=== PATIENT | female | born 1960 | race Two or more races ===

== ENCOUNTER 2024-10-03 15:43 | Outpatient (CLI) | payer OTHER | END 2024-10-03 15:48 | disposition home or self-care (01) | LOC: RAD 15:43 | DX: M25.561 Pain in right knee (principal) ==

== ENCOUNTER 2024-10-28 17:26 | Outpatient (CLI) | payer OTHER ==
[2024-10-28 17:54] LABS: BASO % 0.9 % (0.1-1.2); EOS # 0.16 (0.04-0.54); HEMATOCRIT 37.1 % (34.1-44.9); HEMOGLOBIN 11.9 g/dL (11.2-15.7); LYMPH # 2.92 (1.18-3.74); LYMPH % 35.6 % (19.3-53.1); MEAN CORPUSCULAR HEMOGLOBIN 22.3 pg (25.6-32.2); MONO # 0.53 (0.24-0.82); MONO % 6.5 % (4.7-12.5); NEUT # 4.51 (1.56-6.13); NEUT % 54.9 % (34.0-71.1); PLATELET COUNT 311 K/uL (163-369); RED BLOOD COUNT 5.34 M/uL (3.93-5.22); RED CELL DISTRIBUTION WIDTH 15.6 % (11.6-14.4)
[2024-10-28 18:04] LABS: ob NEGATIVE (NEGATIVE)
[2024-10-28 18:04] LABS: URINE BILIRRUBIN NEGATIVE (NEGATIVE); URINE BLOOD SMALL; URINE GLUCOSE NEGATIVE (NEGATIVE); URINE KETONE NEGATIVE (NEGATIVE); URINE LEUKOCYTE NEGATIVE; URINE NITRATE NEGATIVE; URINE PROTEIN NEGATIVE (NEGATIVE); URINE UROBILINOGEN 0.2 E.U./dl
[2024-10-28 18:07] LABS: URINE BACTERIA 59.9 uL (0.0-1933); URINE EPITHELIAL CELLS 7.7 uL (0.0-38.8); URINE RBC 28.2 uL (0.0-20.8); URINE WBC 5.6 uL (0.0-23.2)
[2024-10-28 18:17] LABS: URINE APPEARANCE CLEAR; URINE COLOR YELLOW
[2024-10-28 18:26] LABS: ALBUMIN 4.2 gm/dL (3.4-5.0); BILIRUBIN TOTAL 0.57 mg/dL (0.3-1.2); CALCIUM 9.8 mg/dL (8.5-10.1); CREATININE SERUM 0.76 mg/dL (0.55-1.02); FREE TRIODOTIRONINE 2.37 pg/ml (2.18-3.98); GFR 76.14; GLOBULINA 3.5 G/DL (2.4-3.5); POTASSIUM 4.67 mEq/L (3.5-5.1); T4 TOTAL 9.09 UG/DL (4.8-13.9); TOTAL PROTEIN 7.7 gm/dL (6.4-8.2); TSH 1.38 uIU/mL (0.358-3.74)
[2024-10-31 10:18] LABS: VITAMIN D3 25 HYDROXY 35.9 ng/ml (30-120)
== END 2024-10-28 17:49 | disposition home or self-care (01) ==
LOC: LAB 17:26
DX: N95.1 Menopausal and female climacteric states (principal); E28.310 Symptomatic premature menopause; E04.1 Nontoxic single thyroid nodule; E55.9 Vitamin D deficiency, unspecified; E78.00 Pure hypercholesterolemia, unspecified; N39.0 Urinary tract infection, site not specified; R19.5 Other fecal abnormalities; R97.8 Other abnormal tumor markers; E11.9 Type 2 diabetes mellitus without complications; K76.9 Liver disease, unspecified

== ENCOUNTER 2024-11-23 13:36 | Outpatient (CLI) | payer OTHER | END 2024-11-23 13:41 | disposition home or self-care (01) | LOC: NUCLEAR 13:36 | PROVIDERS: ATTEND Obstetrics & Gynecology | DX: M81.0 Age-related osteoporosis without current pathological fracture (principal) ==

== ENCOUNTER 2024-11-23 16:43 | Outpatient (CLI) | payer OTHER | END 2024-11-23 16:47 | disposition home or self-care (01) | LOC: MAMO-SONO 16:43 | PROVIDERS: ATTEND Obstetrics & Gynecology | DX: N60.12 Diffuse cystic mastopathy of left breast (principal); N60.11 Diffuse cystic mastopathy of right breast; Z12.31 Encounter for screening mammogram for malignant neoplasm of breast ==

== ENCOUNTER 2024-11-29 13:52 | Outpatient (CLI) | payer OTHER | END 2024-11-29 13:58 | disposition home or self-care (01) | LOC: MAMO-SONO 13:52 | PROVIDERS: ATTEND Obstetrics & Gynecology | DX: N60.11 Diffuse cystic mastopathy of right breast (principal) ==

== ENCOUNTER 2024-12-07 15:37 | Outpatient (CLI) | payer OTHER ==
[2024-12-09 07:10] LABS: HSV I IGG TYPE SPECIFIC Reactive (Non Reactive); hav igm Negative (Negative); hep b c Negative (Negative); hep b s ag Negative (Negative)
== END 2024-12-07 15:47 | disposition home or self-care (01) ==
LOC: LAB 15:37
PROVIDERS: ATTEND Obstetrics & Gynecology
DX: R10.9 Unspecified abdominal pain (principal); Z11.4 Encounter for screening for human immunodeficiency virus [HIV]; Z11.3 Encounter for screening for infections with a predominantly sexual mode of transmission; A60.00 Herpesviral infection of urogenital system, unspecified; B17.0 Acute delta-(super) infection of hepatitis B carrier; A53.9 Syphilis, unspecified; N39.0 Urinary tract infection, site not specified